=== PATIENT | male | born 1945 | race Hispanic/Latino ===

== ENCOUNTER 2022-02-21 09:05 | Inpatient (IN) | payer MEDICARE, OTHER ==
[~2022-02-21] VITALS: Ht 177.8 cm; Wt 83.9 kg
[2022-02-21] MEDS ORDERED: SODIUM CHLORIDE 0.9% 1000ML 1,000 ML IV STA (09:29)
[2022-02-21] MEDS ORDERED: Morphine 4mg INJECTION 4 MG/ML INJ IV STA (09:29)
[2022-02-21] MEDS ORDERED: ONDANSETRON HCL INJ 2MG/ML 2ML 2 MG/ML VIAL IV STA (09:29)
[2022-02-21] MEDS ORDERED: DIATRIZOATE MEGL/DIATRIZOA SOD 30 ML BTL PO ONE (09:47)
[2022-02-21 09:53] LABS: BASOPHILS % 0.5 % (0.0-1.0); EOSINOPHILS # (AUTO) 0.2 (0.0-0.4); EOSINOPHILS % 2.5 % (0.0-6.0); HEMOGLOBIN 13.8 g/dL (14.0-18.0); LYMPHOCYTES # (AUTO) 1.7 (1.0-3.2); LYMPHOCYTES % 23.4 % (18.0-39.1); MEAN CORPUSCULAR HEMOGLOBIN 29.6 pg (28-32); MEAN CORPUSCULAR HGB CONC 33.7 g/dL (31-35); MEAN CORPUSCULAR VOLUME 87.8 fL (81-99); MONOCYTES # (AUTO) 0.6 (0.2-0.8); MONOCYTES % 8.7 % (4.4-11.3); NEUTROPHILS # (AUTO) 4.7 (2.1-6.9); NEUTROPHILS % 64.6 % (38.7-80.0); PLATELET COUNT 238 x10e3/uL (140-360); RED BLOOD COUNT 4.67 x10e6/uL (4.3-5.7); RED CELL DISTRIBUTION WIDTH 13.1 % (11.7-14.4)
[2022-02-21 10:05] LABS: INR 1.03; PARTIAL THROMBOPLASTIN TIME 30.3 seconds (23.8-35.5); PROTHROMBIN TIME 14.4 seconds (11.9-14.5)
[2022-02-21 10:15] LABS: ALBUMIN/GLOBULIN RATIO 1.1 (0.8-2.0); ANION GAP 14.9 mmol/L (8-16); CALCIUM 9.1 mg/dL (8.4-10.2); MAGNESIUM 1.9 MG/DL (1.3-2.1); POTASSIUM 3.9 mmol/L (3.5-5.1)
[2022-02-21 10:21] LABS: CREATINE KINASE MB 1.9 ng/mL (0-5.0)
[2022-02-21 10:21] LABS: CLARITY,URINE CLEAR (CLEAR); COLOR,URINE YELLOW (YELLOW)
[2022-02-21 10:22] LABS: KETONES,URINE NEGATIVE (NEGATIVE); LEUKOCYTE ESTERASE ,URINE TRACE (NEGATIVE); NITRITE,URINE POSITIVE (NEGATIVE); PROTEIN,URINE DIPSTICK 1+ (NEGATIVE); URINE UROBILINOGEN 0.2 mg/dL (0.2 - 1)
[2022-02-21] MEDS ORDERED: IOPAMIDOL 370 MG/ML 100 ML INFUS..BTL INJ ONE (10:37)
[2022-02-21 10:52] LABS: WBC,URINE (MAN) 0-5 /HPF (0-5)
[2022-02-21 10:53] LABS: EPITHELIAL CELLS,URINE RARE /LPF; RBC,URINE 0-5 /HPF (0-5)
[2022-02-21 10:54] LABS: BACTERIA,URINE FEW /HPF
[2022-02-21] MEDS ORDERED: ONDANSETRON HCL INJ 2MG/ML 2ML 2 MG/ML VIAL IV PRN ×2 (12:30→15:00)
[2022-02-21] MEDS ORDERED: SODIUM CHLORIDE 0.9% 1000ML 1,000 ML IV SCH (12:30)
[2022-02-21] MEDS ORDERED: Morphine 2mg Syringe 2 MG/ML SYR IV PRN (12:30)
[2022-02-21] MEDS ORDERED: FENTANYL CITRATE/PF 100MCG/2 ML INJ ONE (13:14)
[2022-02-21] MEDS ORDERED: BUPIVACAINE HC 0.75% PF 10ML VIAL INJ ONE (13:40)
[2022-02-21] MEDS ORDERED: ACETAMINOPHEN 325 MG TAB PO PRN (15:00)
[2022-02-21] MEDS ORDERED: HYDROCODONE/APAP 5MG-325MG TAB PO PRN (15:00)
[2022-02-21 16:25] VITALS: BP 124/82
[2022-02-21 16:32] VITALS: BP 124/82
[2022-02-21 16:37] VITALS: BP 124/82
[2022-02-21] MEDS: DEXTROSE 5%/0.45% SOD CHL 1,000 ML IV SCH (17:14)
[2022-02-21 20:00] VITALS: BP 132/85
[2022-02-21 20:06] VITALS: BP 136/83
[2022-02-21 20:36] VITALS: BP 132/85
[2022-02-22] VITALS: BP 121/92
[2022-02-22] MEDS: DEXTROSE 5%/0.45% SOD CHL 1,000 ML IV SCH ×2 (01:00→11:00)
[2022-02-22 04:00] VITALS: BP 105/75
[2022-02-22 06:30] LABS: BASOPHILS % 0.1 % (0.0-1.0); HEMATOCRIT 35.5 % (38.2-49.6); HEMOGLOBIN 12.1 g/dL (14.0-18.0); LYMPHOCYTES # (AUTO) 0.9 (1.0-3.2); LYMPHOCYTES % 7.9 % (18.0-39.1); MEAN CORPUSCULAR HGB CONC 34.1 g/dL (31-35); MEAN CORPUSCULAR VOLUME 88.1 fL (81-99); MONOCYTES # (AUTO) 0.4 (0.2-0.8); MONOCYTES % 3.2 % (4.4-11.3); NEUTROPHILS # (AUTO) 9.5 (2.1-6.9); NEUTROPHILS % 88.2 % (38.7-80.0); PLATELET COUNT 219 x10e3/uL (140-360); RED BLOOD COUNT 4.03 x10e6/uL (4.3-5.7); RED CELL DISTRIBUTION WIDTH 12.8 % (11.7-14.4)
[2022-02-22 06:58] LABS: ALBUMIN 3.3 g/dL (3.5-5.0); ANION GAP 16.2 mmol/L (8-16); CALCIUM 8.2 mg/dL (8.4-10.2); POTASSIUM 4.2 mmol/L (3.5-5.1)
[2022-02-22 08:24] VITALS: BP 121/71
[2022-02-22 09:22] VITALS: BP 121/71
[2022-02-22 09:25] VITALS: BP 121/71
[2022-02-22 11:24] VITALS: BP 141/93
[2022-02-22] MEDS ORDERED: PROPOFOL IV EMULSION 10 MG/ML 20 ML VIAL ONE (13:06)
[2022-02-22] MEDS ORDERED: LIDOCAINE HCL 2% LOCAL INJ 5 ML SDV VIAL INJ ONE (13:06)
[2022-02-22] MEDS ORDERED: POVIDONE IODINE 0.05% 0.05 % ML PO ONE (13:06)
[2022-02-22] MEDS ORDERED: DEXAMETHASONE SOD PHOS INJ 4 MG/ML SDV ONE (13:06)
[2022-02-22] MEDS ORDERED: ACETAMINOPHEN 1000 MG/100 ML IV ONE (13:06)
[2022-02-22] MEDS ORDERED: ONDANSETRON HCL INJ 2MG/ML 2ML 2 MG/ML VIAL ONE (13:06)
[2022-02-22] MEDS ORDERED: ROCURONIUM BROMIDE 10 MG/ML 5ML VIAL IV ONE (13:06)
[2022-02-22] MEDS ORDERED: SEVOFLURANE INHAL SOLN 250 ML PEN BTL ONE (13:06)
== END 2022-02-22 11:53 | disposition home or self-care (01) | DRG 355 ==
LOC: ER 09:08 → ERHOLD 12:31 → MED/SURG 16:15
PROVIDERS: ADMIT Internal Medicine; ATTEND Internal Medicine
PROC: 0DBU0ZZ Excision of Omentum, Open Approach (ICD-10-PCS; 2022-02-21)
PROC: 0WQF0ZZ Repair Abdominal Wall, Open Approach (ICD-10-PCS; principal; 2022-02-21 14:14)
DX: K43.6 Other and unspecified ventral hernia with obstruction, without gangrene (principal); R73.9 Hyperglycemia, unspecified; I10 Essential (primary) hypertension; Z20.822 Contact with and (suspected) exposure to COVID-19
CPT/HCPCS: 36415; 74177; 80053; 81001; 82550; 82553; 83690; 83735; 84484; 85025; 85610; 85730; 87086; 88305; 93005; 99284; J0690; J1100; J2001; J2405; J2543; J3010; J7030; Q9967